=== PATIENT | female | born 1965 | race African-American/Black ===

== ENCOUNTER → 2016-11-19 | Outpatient (CLI) | payer OTHER ==
--- NOTE | ~2016-11-19 | US6 ---
[facility] A Service of [facility] & [facility] RADIOLOGY TEXT RESULTS PATIENT: MONA GUTIERREZ LOCATION: [facility] : 63 UNIT #: [id number] AGE: [address]: AISHA RUIZ SEX: F ORDER DR: [id number] [facility] [address] [place], [place] [address] [id number] O MR#: [id number] Acc #: [id number] NAME: MONA GUTIERREZ : 1965 SEX: F STUDY DATE/TIME: 11/19/2016 7:45 UNIT: [facility] ROOM: STUDY DESCRIPTION: US Abdominal Limited Attending Physician: Aisha Ruiz Referring Physician: Aisha Ruiz Ordering Physician: Physician Non-Staff Primary Care Physician: Aisha Ruiz MEDICAL IMAGING REPORT This report is preliminary unless electronic signature is present EXAM Right upper quadrant ultrasound 11/19/2016 HISTORY Right upper quadrant abdominal pain for 1 month and gastroesophageal reflux disease. FINDINGS Ultrasound examination of the gallbladder is negative. There is no cholelithiasis, gallbladder wall thickening, or bile duct dilatation. The visualized liver is negative. IMPRESSION Negative gallbladder ultrasound examination. Dictated by... Juan Hernandez M.D. THIS IS AN ELECTRONICALLY VERIFIED REPORT Juan Hernandez M.D. at 11/19/2016 5:34 PM YUNIOR/bong TD: 11/19/2016 13:41 JOB #: [id number] MEDICAL IMAGING REPORT Page 1 of 1 COPY
== END | disposition home or self-care (01) ==
LOC: CGUS 07:21
DX: R10.11 Right upper quadrant pain (principal)
CPT/HCPCS: 76705